=== PATIENT | female | born 1925 | race Caucasian/White ===

== ENCOUNTER 2016-06-16 21:17 | Emergency (ER) | payer MEDICARE, BC ==
[2016-06-16 21:40] VITALS: BP 143/74
--- NOTE | 2016-06-16 21:59 | EDM.PDOC ---
ED HPI GENERAL MEDICAL PROBLEM - General Chief Complaint: General Stated Complaint: STROKE Time Seen by Provider: 06/16/16 21:30 Source of Information: Reports: Patient, Family History Limitations: Reports: No limitations - History of Present Illness INITIAL COMMENTS - FREE TEXT/NARRATIVE: 89-year-old female who had a episode of numbness on the back of her head and felt too weak to get out of her chair so she insisted she needed to be seen. The nursing staff felt she was baseline. On arrival his speech is clear, her strength is symmetric and her vitals are fine. Onset: unknown/unsure Severity: mild Denies Pain Score (Numeric/FACES): 0 - Related Data Allergies Allergy/AdvReac Type Severity Reaction Status Date / Time Sulfa (Sulfonamide Allergy Hives Verified 06/16/16 21:26 Antibiotics) Home Meds: Home Meds Metoprolol Tartrate [Lopressor] 25 mg PO BID 12/13/13 [History] atorvaSTATin [Lipitor] 10 mg PO BEDTIME 12/13/13 [History] Vitamin E 400 intnl unit PO BID 09/21/14 [History] Insulin Glarg,Human.Rec.Analog [Lantus] 10 units SUBCUT BEDTIME 12/25/14 [ History] Ascorbic Acid [Vitamin C] 500 mg PO BID tablet 12/24/15 [Rx] Insulin Aspart [NovoLOG] 0 unit SUBCUT ASDIRECTED pen 12/24/15 [Rx] Diltiazem HCl [Diltiazem ER] 180 mg PO DAILY 05/09/16 [History] Mv-Mn/FA/Vit K/Lycop/Lut/Zeaxa [Ocuvite Eye + Multi Tablet] 1 tab PO DAILY 05/09 [History] Aspirin 81 mg PO DAILY #100 tab.chew 05/10/16 [Rx] Celecoxib [CeleBREX] 100 mg PO DAILY 06/16/16 [History] Haloperidol [Haldol] 2 mg PO BID 06/16/16 [History] Past Medical History HEENT History: Reports: Cataract, Hard of hearing, Impaired vision, Other (see below) Other HEENT History: eye infection following cataract surgery Cardiovascular History: Reports: CAD, Heart murmur, High cholesterol, Hypertension Gastrointestinal History: Reports: Bowel obstruction, Diverticulosis, GI bleed Other Gastrointestinal History: mesenteric panniculitis Genitourinary History: Reports: UTI, recurrent 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 Musculoskeletal History: Reports: Fracture Other Musculoskeletal History: toe Other Neuro History: questionable event not able to move arms, difficulty talking this am feels better now than did this am - grasp equal bilateral and strength is eqaual Past note Tonight no deficit. Endocrine/Metabolic History: Reports: Diabetes, type II Hematologic History: Reports: Blood transfusion(s) Dermatologic History: Reports: Other (see below) Other Dermatologic History: lipomas. shingles - Infectious Disease History Infectious Disease History: Reports: Chicken pox - Past Surgical History HEENT Surgical History: Reports: Cataract surgery, Other (see below) Other HEENT Surgeries/Procedures: cataract surgery 11/30/15 Cardiovascular Surgical History: Reports: Coronary artery stent GI Surgical History: Reports: Appendectomy, Other (see below) Other GI Surgeries/Procedures: Intestine surgery. Female Surgical History: Reports: Tubal ligation Social & Family History - Family History Family Medical History: Noncontributory - Tobacco Use Smoking Status *Q: Never Smoker Second Hand Smoke Exposure: No - Caffeine Use Caffeine Use: Reports: Coffee Other Caffeine Use: 2-3 cups today - Alcohol Use Days Per Week of Alcohol Use: 0 - Recreational Drug Use Recreational Drug Use: No ED ROS GENERAL - Review of Systems Review Of Systems: See Below Constitutional: Reports: malaise. Denies: fever, chills Respiratory: Denies: shortness of breath Cardiovascular: Denies: Chest pain GI/Abdominal: Denies: Abdominal pain, Nausea, Vomiting Skin: Reports: other (Some numbness on the back of her scalp earlier this evening. 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 She will return to her assisted living facility and continue her current treatment. Departure - Departure Time of Disposition: 22:19 Disposition: DC/Tfer to [facility] Condition: good Clinical Impression: Weakness, Confusion Instructions: Confusion Referrals: Clif Botello MD [Primary Care Provider] - Forms: ED Department Discharge Care Plan Goals: Continue current medications without change. Recheck as needed.
== END 2016-06-16 22:19 ==
LOC: JP.ED 21:17
DX: R53.1 Weakness (principal); R41.0 Disorientation, unspecified; Z88.2 Allergy status to sulfonamides; E11.9 Type 2 diabetes mellitus without complications; E78.00 Pure hypercholesterolemia, unspecified; Z79.899 Other long term (current) drug therapy; Z79.4 Long term (current) use of insulin; Z79.82 Long term (current) use of aspirin; Z95.5 Presence of coronary angioplasty implant and graft
CPT/HCPCS: 99284; 99285

== ENCOUNTER 2016-06-27 19:30 | Observation (INO) | payer MEDICARE, BC ==
--- NOTE | 2016-06-27 20:26 | EDM.PDOC ---
ED HPI GENERAL MEDICAL PROBLEM - General Chief Complaint: General Stated Complaint: ILLNESS Time Seen by Provider: 06/27/16 19:35 Source of Information: Reports: Patient, Family, Old records, RN notes reviewed History Limitations: Reports: No limitations - History of Present Illness INITIAL COMMENTS - FREE TEXT/NARRATIVE: 89-year-old female presents to emergency department today with complaints of slurred speech she has a known history of cerebrovascular accident with subdural hemorrhage she also has had TIAs in the past has a history of atrial fibrillation has been on chronic anticoagulation but elected not continued at as she has had frequent falls. She was admitted to the hospital in April 2016 for TIA-like symptoms at which time MRI, echocardiogram were offered as well as transfer for further evaluation 2 strokes in her which she declined. At this time her family is present and they would like to proceed with more investigative measures. She states approximately 2-1/2 hours ago she had slurred speech facial drooping unclear which side inability to use her left arm EMS services were called, EMS evaluation of sensation stroke scale was negative , transported to the emergency department for further evaluation. Upon arrival speech is back to baseline she is moving all 4 extremities family would like an evaluation Left Hip Pain Score (Numeric/FACES): 7 - Related Data Allergies Allergy/AdvReac Type Severity Reaction Status Date / Time Sulfa (Sulfonamide Allergy Hives Verified 06/27/16 19:36 Antibiotics) Home Meds: Home Meds Metoprolol Tartrate [Lopressor] 25 mg PO BID 12/13/13 [History] atorvaSTATin [Lipitor] 10 mg PO BEDTIME 12/13/13 [History] Vitamin E 400 intnl unit PO BID 09/21/14 [History] Insulin Glarg,Human.Rec.Analog [Lantus] 12 units SUBCUT BEDTIME 12/25/14 [ History] Ascorbic Acid [Vitamin C] 500 mg PO BID tablet 12/24/15 [Rx] Insulin Aspart [NovoLOG] 0 unit SUBCUT ASDIRECTED pen 12/24/15 [Rx] Diltiazem HCl [Diltiazem ER] 180 mg PO DAILY 05/09/16 [History] Mv-Mn/FA/Vit K/Lycop/Lut/Zeaxa [Ocuvite Eye + Multi Tablet] 1 tab PO DAILY 05/09 [History] Aspirin 81 mg PO DAILY #100 tab.chew 05/10/16 [Rx] Celecoxib [CeleBREX] 100 mg PO DAILY 06/16/16 [History] Haloperidol [Haldol] 2 mg PO BID 06/16/16 [History] Past Medical History HEENT History: Reports: Cataract, Hard of hearing, Impaired vision, Other (see below) Other HEENT History: eye infection following cataract surgery Cardiovascular History: Reports: CAD, Heart murmur, High cholesterol, Hypertension, Stents Gastrointestinal History: Reports: Bowel obstruction, Diverticulosis, GI bleed Other Gastrointestinal History: mesenteric panniculitis Genitourinary History: Reports: UTI, recurrent 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 Musculoskeletal History: Reports: Fracture Other Musculoskeletal History: toe Neurological History: Reports: TIA, Other (see below) Other Neuro History: not sure if it was a tia or a cva beginning of june 2016 Endocrine/Metabolic History: Reports: Diabetes, type II Hematologic History: Reports: Blood transfusion(s) Dermatologic History: Reports: Other (see below) Other Dermatologic History: lipomas. shingles - Infectious Disease History Infectious Disease History: Reports: Chicken pox - Past Surgical History HEENT Surgical History: Reports: Cataract surgery, Other (see below) Other HEENT Surgeries/Procedures: cataract surgery 11/30/15 Cardiovascular Surgical History: Reports: Coronary artery stent GI Surgical History: Reports: Appendectomy, Other (see below) Other GI Surgeries/Procedures: Intestine surgery. twisted bowels Female Surgical History: Reports: Tubal ligation Social & Family History - Family History Family Medical History: Noncontributory - Tobacco Use Smoking Status *Q: Never Smoker Second Hand Smoke Exposure: No - Caffeine Use Caffeine Use: Reports: Coffee Other Caffeine Use: 2-3 cups today - Alcohol Use Days Per Week of Alcohol Use: 0 - Recreational Drug Use Recreational Drug Use: No ED ROS GENERAL - Review of Systems Review Of Systems: See Below Constitutional: Reports: weakness HEENT: Reports: No symptoms Respiratory: Reports: Shortness of Breath Cardiovascular: Reports: No symptoms GI/Abdominal: Reports: No symptoms : Reports: no symptoms Musculoskeletal: Reports: no symptoms Skin: Reports: no symptoms Neurological: Reports: Trouble Speaking, Weakness ED EXAM, GENERAL - Physical Exam Exam: See Below Free Text/Narrative:: General: female, not in any distress, alert HEENT: head is atraumatic normocephalic, eyes left eye pupil equal and round sclera clear, 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 Ears tympanic membranes clear and meyer landmarks and light reflex are present bilaterally canals are clear. Nose no septal deviation, nares are clear, no blood present. Mouth mucosa is moist and pink no erythema or exudate noted in soft palate, tongue is midline uvula is midline, dentition is intact. Neck: Supple no thyromegaly no tracheal deviation. Nodes: Cervical nodes subclavicular nodes nontender no palpable lymphadenopathy noted. Lungs: clear to auscultation bilaterally with symmetrical respirations, no adventitious noise appreciated. CV: irregularly irregular rate and rhythm S1 and S2 appreciated no murmurs rubs or gallops noted. Abdomen: Soft, nontender, no palpable masses or organomegaly appreciated, no distention no guarding bowel sounds are present, . Neuro: Cranial nerves II through XII grossly intact excludingdeficiencies of the right eye, power is 5 out 5 in upper and lower extremities, can do finger to nose without difficulty no dysdiadochokinesis no difficulty with rapid alternating movements is too weak to stand to complete neuro exam Skin: Warm and dry, intact Extremities: No lower extremity edema appreciated, Course - Vital Signs Last Recorded V/S: Last Vital Signs Temp 98.8 F 06/27/16 19:41 Pulse 64 06/27/16 22:09 Resp 15 06/27/16 22:09 BP 150/77 H 06/27/16 22:09 Pulse Ox 96 06/27/16 22:09 - Orders/Labs/Meds Orders: Active Orders 24 hr Category Date Time Status EKG Documentation Completion [RC] ASDIRECTED Care 06/27/16 20:15 Active Chest 1V Frontal [CR] Urgent Exams 06/27/16 20:14 Taken Head wo Cont [CT] Urgent Exams 06/27/16 20:14 Taken EKG 12 Lead [EK] Urgent Ther 06/27/16 20:14 Ordered Labs: Laboratory Tests 06/27/16 06/27/16 06/27/16 Range/Units 20:27 20:27 20:27 WBC 8.6 (4.5-11.0) K/uL RBC 5.03 (3.30-5.50) M/uL Hgb 15.0 (12.0-15.0) g/dL Hct 43.6 (36.0-48.0) % MCV 87 (80-98) fL MCH 30 (27-31) pg MCHC 34 (32-36) % Plt Count 294 (150-400) K/uL Neut % (Auto) 58 (36-66) % Lymph % (Auto) 27 (24-44) % [place] % (Auto) 12 H (2-6) % Eos % (Auto) 3 (2-4) % Baso % (Auto) 1 (0-1) % PT (9.5-12.0) sec INR (0.80-1.20) APTT (27.0-36.0) sec Sodium 138 L (140-148) mmol/L Potassium 4.4 (3.6-5.2) mmol/L Chloride 101 (100-108) mmol/L Carbon Dioxide 30 (21-32) mmol/L Anion Gap 11.4 (5.0-14.0) mmol/L BUN 14 (7-18) mg/dL Creatinine 0.8 (0.6-1.0) mg/dL Est Cr Clr Drug Dosing TNP Estimated GFR (MDRD) > 60 (>60) Glucose 152 H (74-106) mg/dL Calcium 8.5 (8.5-10.1) mg/dL Total Bilirubin 0.4 (0.2-1.0) mg/dL AST 19 (15-37) U/L ALT 21 (12-78) U/L Alkaline Phosphatase 52 (46-116) U/L CK-MB (CK-2) 1.3 (0-3.6) mg/mL Troponin I < 0.017 (0.000-0.056) ng/mL Total Protein 6.8 (6.4-8.2) g/dL Albumin 3.6 (3.4-5.0) g/dL Globulin 3.2 (2.3-3.5) g/dL Albumin/Globulin Ratio 1.1 L (1.2-2.2) Urine Color Urine Appearance Urine pH (4.5-8.0) Ur Specific Tyler (1.008-1.030) Urine Protein (NEGATIVE) mg/dL Urine Glucose (UA) (NEGATIVE) mg/dL Urine Ketones (NEGATIVE) mg/dL Urine Occult Blood (NEGATIVE) Urine Nitrite (NEGATIVE) Urine Bilirubin (NEGATIVE) Urine Urobilinogen (NORMAL) mg/dL Ur Leukocyte Esterase (NEGATIVE) Urine RBC (0-5) Urine WBC (0-5) Ur Epithelial Cells Amorphous Sediment Urine Bacteria Urine Mucus 06/27/16 06/27/16 Range/Units 20:27 20:28 WBC (4.5-11.0) K/uL RBC (3.30-5.50) M/uL Hgb (12.0-15.0) g/dL Hct (36.0-48.0) % MCV (80-98) fL MCH (27-31) pg MCHC (32-36) % Plt Count (150-400) K/uL Neut % (Auto) (36-66) % Lymph % (Auto) (24-44) % [place] % (Auto) (2-6) % Eos % (Auto) (2-4) % Baso % (Auto) (0-1) % PT 10.7 (9.5-12.0) sec INR 1.01 (0.80-1.20) APTT 25.6 L (27.0-36.0) sec Sodium (140-148) mmol/L Potassium (3.6-5.2) mmol/L Chloride (100-108) mmol/L Carbon Dioxide (21-32) mmol/L Anion Gap (5.0-14.0) mmol/L BUN (7-18) mg/dL Creatinine (0.6-1.0) mg/dL Est Cr Clr Drug Dosing Estimated GFR (MDRD) (>60) Glucose (74-106) mg/dL Calcium (8.5-10.1) mg/dL Total Bilirubin (0.2-1.0) mg/dL AST (15-37) U/L ALT (12-78) U/L Alkaline Phosphatase (46-116) U/L CK-MB (CK-2) (0-3.6) mg/mL Troponin I (0.000-0.056) ng/mL Total Protein (6.4-8.2) g/dL Albumin (3.4-5.0) g/dL Globulin (2.3-3.5) g/dL Albumin/Globulin Ratio (1.2-2.2) Urine Color Yellow Urine Appearance Clear Urine pH 6.5 (4.5-8.0) Ur Specific Tyler 1.015 (1.008-1.030) Urine Protein Negative (NEGATIVE) mg/dL Urine Glucose (UA) 1000 H (NEGATIVE) mg/dL Urine Ketones Negative (NEGATIVE) mg/dL Urine Occult Blood Negative (NEGATIVE) Urine Nitrite Negative (NEGATIVE) Urine Bilirubin Negative (NEGATIVE) Urine Urobilinogen Normal (NORMAL) mg/dL Ur Leukocyte Esterase Negative (NEGATIVE) Urine RBC 0-5 (0-5) Urine WBC 0-5 (0-5) Ur Epithelial Cells Few Amorphous Sediment Few Urine Bacteria Moderate Urine Mucus Not seen Departure - Departure Time of Disposition: 22:58 Disposition: Admitted As Inpatient 68 Condition: poor Clinical Impression: Subdural hematoma, acute Forms: ED Department Discharge - My Orders Last 24 Hours: My Active Orders 06/27/16 20:14 Chest 1V Frontal [CR] Urgent Head wo Cont [CT] Urgent EKG 12 Lead [EK] Urgent 06/27/16 20:15 EKG Documentation Completion [RC] ASDIRECTED - Assessment/Plan Last 24 Hours: My Active Orders 06/27/16 20:14 Chest 1V Frontal [CR] Urgent Head wo Cont [CT] Urgent EKG 12 Lead [EK] Urgent 06/27/16 20:15 EKG Documentation Completion [RC] ASDIRECTED Plan: Assessment Acuity = acute Site and laterality = acute on chronic subdural hematoma 1.2 cm maximum diameter no midline shift the left side Etiology = unclear etiology Manifestations = none Location of injury = home Lab values = CBC unremarkable sodium low at 138 consistent hyponatremia and the remainder of electrolytes within normal limits EKG demonstrates sinus rhythm, CT scan describes a lesion above Plan I did discuss options with her including referral to neurosurgery for further evaluation she declined she states she is a DNR/DNI I wants no further intervention done is willing to do comfort care, family is presents and agree no further interventions similar to her hospitalization last April. Patient was in agreement with the plan all questions were answered, they were instructed to return to the emergency department or call for worsening symptoms. This note was dictated using [employer] voice recognition software please call with any questions.
--- NOTE | 2016-06-27 23:41 | PCM.HP ---
H&P History of Present Illness - General Date of Service: 06/27/16 Admit Problem/Dx: Admission Diagnosis/Problem Admission Diagnosis/Problem Non-traumatic subdural hematoma Source of Information: Patient, EMS notes reviewed, Provider History Limitations: Reports: No limitations - History of Present Illness Initial Comments - Free Text/Narative: Time Seen by Provider: 06/27/16 19:35 Source of Information: Reports: Patient, Family, Old records, RN notes reviewed History Limitations: Reports: No limitations - History of Present Illness INITIAL COMMENTS - FREE TEXT/NARRATIVE: 89-year-old female presents to emergency department today with complaints of slurred speech she has a known history of cerebrovascular accident with subdural hemorrhage she also has had TIAs in the past has a history of atrial fibrillation has been on chronic anticoagulation but elected not continued at as she has had frequent falls. She was admitted to the hospital in April 2016 for TIA-like symptoms at which time MRI, echocardiogram were offered as well as transfer for further evaluation 2 strokes in her which she declined. At this time her family is present and they would like to proceed with more investigative measures. She states approximately 2-1/2 hours ago she had slurred speech facial drooping unclear which side inability to use her left arm EMS services were called, EMS evaluation of sensation stroke scale was negative , transported to the emergency department for further evaluation. Upon arrival speech is back to baseline she is moving all 4 extremities family would like an evaluation Left Hip Pain Score (Numeric/FACES): 7 I did discuss options with her including referral to neurosurgery for further evaluation she declined she states she is a DNR/DNI I wants no further intervention done is willing to do comfort care, family is presents and agree no further interventions similar to her hospitalization last April. Onset of Symptoms: Reports: today Duration of Symptoms: Reports: Hour(s): Location: Reports: generalized Severity: mild Improves with: Reports: None Worsens with: Reports: None Associated Symptoms: Reports: denies other symptoms Left Hip Pain Score (Numeric/FACES): 7 - Related Data Allergies/Adverse Reactions: Allergies Allergy/AdvReac Type Severity Reaction Status Date / Time Sulfa (Sulfonamide Allergy Hives Verified 06/27/16 19:36 Antibiotics) Home Medications: Home Meds Metoprolol Tartrate [Lopressor] 25 mg PO BID 12/13/13 [History] atorvaSTATin [Lipitor] 10 mg PO BEDTIME 12/13/13 [History] Vitamin E 400 intnl unit PO BID 09/21/14 [History] Insulin Glarg,Human.Rec.Analog [Lantus] 12 units SUBCUT BEDTIME 12/25/14 [ History] Ascorbic Acid [Vitamin C] 500 mg PO BID tablet 12/24/15 [Rx] Insulin Aspart [NovoLOG] 0 unit SUBCUT ASDIRECTED pen 12/24/15 [Rx] Diltiazem HCl [Diltiazem ER] 180 mg PO DAILY 05/09/16 [History] Mv-Mn/FA/Vit K/Lycop/Lut/Zeaxa [Ocuvite Eye + Multi Tablet] 1 tab PO DAILY 05/09 [History] Aspirin 81 mg PO DAILY #100 tab.chew 05/10/16 [Rx] Celecoxib [CeleBREX] 100 mg PO DAILY 06/16/16 [History] Haloperidol [Haldol] 2 mg PO BID 06/16/16 [History] Past Medical History HEENT History: Reports: Cataract, Hard of hearing, Impaired vision, Other (see below) Other HEENT History: eye infection following cataract surgery Cardiovascular History: Reports: CAD, Heart murmur, High cholesterol, Hypertension, Stents Gastrointestinal History: Reports: Bowel obstruction, Diverticulosis, GI bleed Other Gastrointestinal History: mesenteric panniculitis Genitourinary History: Reports: UTI, recurrent [employer] History: Reports: , Other (see below) Other OB/BYN History: tubal . Musculoskeletal History: Reports: Fracture Other Musculoskeletal History: toe Neurological History: Reports: TIA, Other (see below) Other Neuro History: not sure if it was a tia or a cva beginning of june 2016 Endocrine/Metabolic History: Reports: Diabetes, type II Hematologic History: Reports: Blood transfusion(s) Dermatologic History: Reports: Other (see below) Other Dermatologic History: lipomas. shingles - Infectious Disease History Infectious Disease History: Reports: Chicken pox - Past Surgical History HEENT Surgical History: Reports: Cataract surgery, Other (see below) Other HEENT Surgeries/Procedures: cataract surgery 11/30/15 Cardiovascular Surgical History: Reports: Coronary artery stent GI Surgical History: Reports: Appendectomy, Other (see below) Other GI Surgeries/Procedures: Intestine surgery. twisted bowels Female Surgical History: Reports: Tubal ligation Social & Family History - Family History Family Medical History: Noncontributory - Tobacco Use Smoking Status *Q: Never Smoker Second Hand Smoke Exposure: No - Caffeine Use Caffeine Use: Reports: Coffee Other Caffeine Use: 2-3 cups today - Alcohol Use Days Per Week of Alcohol Use: 0 - Recreational Drug Use Recreational Drug Use: No - Living Situation & Occupation Living situation: Reports: ( [place] of stroke 2004, 59 years.), extended care facility H&P Review of Systems - Review of Systems: Review Of Systems: See Below General: Reports: no symptoms HEENT: Reports: no symptoms Pulmonary: Reports: No Symptoms Cardiovascular: Reports: no symptoms Gastrointestinal: Reports: No symptoms Genitourinary: Reports: no symptoms Musculoskeletal: Reports: no symptoms Skin: Reports: no symptoms Psychiatric: Reports: no symptoms Neurological: Reports: Pre-Existing Deficit Hematologic/Lymphatic: Reports: no symptoms Immunologic: Reports: no symptoms Exam - Exam Exam: See Below - Vital Signs Vital Signs: Last Vital Signs Temp 37.1 C 06/27/16 19:41 Pulse 64 06/27/16 22:09 Resp 15 06/27/16 22:09 BP 150/77 H 06/27/16 22:09 Pulse Ox 96 06/27/16 22:09 Weight: 61.235 kg - Exam General: alert, oriented, cooperative HEENT: PERRLA (right eye blind), Conjunctiva clear, EOMI, Mucosa moist & pink, Nares patent, Normal nasal septum, Posterior pharynx clear, Pupils equal, Pupils reactive, TMs clear Neck: supple, trachea midline Lungs: Clear to auscultation, Normal respiratory effort Cardiovascular: irregular rhythm (murmur noted) Abdomen: normal bowel sounds, soft (Female) Exam: Deferred Rectal (Female) Exam: Deferred Back Exam: normal inspection Extremities: normal inspection Peripheral Pulses: 2+: radial (L), radial (R), dorsalis pedis (L), dorsalis pedis (R) Skin: warm, dry, intact Neurological: reflexes equal bilateral, strength equal bilateral, normal speech , normal tone, sensation intact Neuro Extensive - Mental Status: alert, normal mood/affect, normal cognition, memory intact Neuro Extensive - Motor, Sensory, Reflexes: normal reflexes Psychiatric: alert, normal affect, normal mood - Patient Data Lab Results last 24 hrs: Laboratory Results - last 24 hr 06/27/16 06/27/16 06/27/16 Range/Units 20:27 20:27 20:27 WBC 8.6 (4.5-11.0) K/uL RBC 5.03 (3.30-5.50) M/uL Hgb 15.0 (12.0-15.0) g/dL Hct 43.6 (36.0-48.0) % MCV 87 (80-98) fL MCH 30 (27-31) pg MCHC 34 (32-36) % Plt Count 294 (150-400) K/uL Neut % (Auto) 58 (36-66) % Lymph % (Auto) 27 (24-44) % [place] % (Auto) 12 H (2-6) % Eos % (Auto) 3 (2-4) % Baso % (Auto) 1 (0-1) % PT (9.5-12.0) sec INR (0.80-1.20) APTT (27.0-36.0) sec Sodium 138 L (140-148) mmol/L Potassium 4.4 (3.6-5.2) mmol/L Chloride 101 (100-108) mmol/L Carbon Dioxide 30 (21-32) mmol/L Anion Gap 11.4 (5.0-14.0) mmol/L BUN 14 (7-18) mg/dL Creatinine 0.8 (0.6-1.0) mg/dL Est Cr Clr Drug Dosing TNP Estimated GFR (MDRD) > 60 (>60) Glucose 152 H (74-106) mg/dL Calcium 8.5 (8.5-10.1) mg/dL Total Bilirubin 0.4 (0.2-1.0) mg/dL AST 19 (15-37) U/L ALT 21 (12-78) U/L Alkaline Phosphatase 52 (46-116) U/L CK-MB (CK-2) 1.3 (0-3.6) mg/mL Troponin I < 0.017 (0.000-0.056) ng/mL Total Protein 6.8 (6.4-8.2) g/dL Albumin 3.6 (3.4-5.0) g/dL Globulin 3.2 (2.3-3.5) g/dL Albumin/Globulin Ratio 1.1 L (1.2-2.2) Urine Color Urine Appearance Urine pH (4.5-8.0) Ur Specific [place] (1.008-1.030) Urine Protein (NEGATIVE) mg/dL Urine Glucose (UA) (NEGATIVE) mg/dL Urine Ketones (NEGATIVE) mg/dL Urine Occult Blood (NEGATIVE) Urine Nitrite (NEGATIVE) Urine Bilirubin (NEGATIVE) Urine Urobilinogen (NORMAL) mg/dL Ur Leukocyte Esterase (NEGATIVE) Urine RBC (0-5) Urine WBC (0-5) Ur Epithelial Cells Amorphous Sediment Urine Bacteria Urine Mucus 06/27/16 06/27/16 Range/Units 20:27 20:28 WBC (4.5-11.0) K/uL RBC (3.30-5.50) M/uL Hgb (12.0-15.0) g/dL Hct (36.0-48.0) % MCV (80-98) fL MCH (27-31) pg MCHC (32-36) % Plt Count (150-400) K/uL Neut % (Auto) (36-66) % Lymph % (Auto) (24-44) % Aiken % (Auto) (2-6) % Eos % (Auto) (2-4) % Baso % (Auto) (0-1) % PT 10.7 (9.5-12.0) sec INR 1.01 (0.80-1.20) APTT 25.6 L (27.0-36.0) sec Sodium (140-148) mmol/L Potassium (3.6-5.2) mmol/L Chloride (100-108) mmol/L Carbon Dioxide (21-32) mmol/L Anion Gap (5.0-14.0) mmol/L BUN (7-18) mg/dL Creatinine (0.6-1.0) mg/dL Est Cr Clr Drug Dosing Estimated GFR (MDRD) (>60) Glucose (74-106) mg/dL Calcium (8.5-10.1) mg/dL Total Bilirubin (0.2-1.0) mg/dL AST (15-37) U/L ALT (12-78) U/L Alkaline Phosphatase (46-116) U/L CK-MB (CK-2) (0-3.6) mg/mL Troponin I (0.000-0.056) ng/mL Total Protein (6.4-8.2) g/dL Albumin (3.4-5.0) g/dL Globulin (2.3-3.5) g/dL Albumin/Globulin Ratio (1.2-2.2) Urine Color Yellow Urine Appearance Clear Urine pH 6.5 (4.5-8.0) Ur Specific [place] 1.015 (1.008-1.030) Urine Protein Negative (NEGATIVE) mg/dL Urine Glucose (UA) 1000 H (NEGATIVE) mg/dL Urine Ketones Negative (NEGATIVE) mg/dL Urine Occult Blood Negative (NEGATIVE) Urine Nitrite Negative (NEGATIVE) Urine Bilirubin Negative (NEGATIVE) Urine Urobilinogen Normal (NORMAL) mg/dL Ur Leukocyte Esterase Negative (NEGATIVE) Urine RBC 0-5 (0-5) Urine WBC 0-5 (0-5) Ur Epithelial Cells Few Amorphous Sediment Few Urine Bacteria Moderate Urine Mucus Not seen Result Diagrams: 06/27/16 20:27 06/27/16 20:27 *Q Meaningful Use (ADM) - VTE *Q VTE Criteria *Q: - Stroke *Q Stroke Criteria *Q: - AMI *Q AMI Criteria *Q: - Problem List (1) Chronic subdural hematoma SNOMED Code(s): 44254236 ICD Code: I62.03 - NONTRAUMATIC CHRONIC SUBDURAL HEMORRHAGE Status: Acute Priority: Medium Current Visit: Yes (2) Subdural hematoma, acute SNOMED Code(s): 62529926 ICD Code: I62.01 - NONTRAUMATIC ACUTE SUBDURAL HEMORRHAGE Status: Acute Priority: High Current Visit: Yes (3) Diabetes mellitus type 2 SNOMED Code(s): 20039885 ICD Code: E11.9 - TYPE 2 DIABETES MELLITUS WITHOUT COMPLICATIONS Status: Chronic Priority: High Current Visit: No (4) Atrial fibrillation SNOMED Code(s): 38537967 ICD Code: I48.91 - UNSPECIFIED ATRIAL FIBRILLATION Status: Acute Priority : Low Current Visit: No Qualifiers: Atrial fibrillation type: chronic Qualified Code(s): I48.2 - Chronic atrial fibrillation Problem List Initiated/Reviewed/Updated: Yes Orders Last 24hrs: Active Orders 24 hr Category Date Time Status Patient Status Manage Transfer [TRANSFER] Routine ADT 06/27/16 23:06 Active EKG Documentation Completion [RC] ASDIRECTED Care 06/27/16 20:15 Active Chest 1V Frontal [CR] Urgent Exams 06/27/16 20:14 Taken Head wo Cont [CT] Urgent Exams 06/27/16 20:14 Taken Resuscitation Status Routine Resus Stat 06/27/16 23:10 Ordered EKG 12 Lead [EK] Urgent Ther 06/27/16 20:14 Ordered Assessment/Plan Comment:: ASSESSMENT / PLAN - 89-year-old female presents to emergency department today with complaints of slurred speech she has a known history of cerebrovascular accident with subdural hemorrhage she also has had TIAs in the past has a history of atrial fibrillation has been on chronic anticoagulation but elected not continued at as she has had frequent falls. She was admitted to the hospital in April 2016 for TIA-like symptoms at which time MRI, echocardiogram were offered as well as transfer for further evaluation 2 strokes in her which she declined. At this time her family is present and they would like to proceed with more investigative measures. She states approximately 2-1/2 hours ago she had slurred speech facial drooping unclear which side inability to use her left arm EMS services were called, EMS evaluation of sensation stroke scale was negative , transported to the emergency department for further evaluation. Upon arrival speech is back to baseline she is moving all 4 extremities family would like an evaluation Left Hip Pain Score (Numeric/FACES): 7 I did discuss options with her including referral to neurosurgery for further evaluation she declined she states she is a DNR/DNI I wants no further intervention done is willing to do comfort care, family is presents and agree no further interventions similar to her hospitalization last April. Patient reports ready to go, misses her of 57 years who of stroke in 2004. Plan -Admit to ICU Med over flow for further monitoring, plan to discharge to Assisted Living in am, if no further impairment is noted. -Oxygen per nasal cannula prn -Advise to notify nurses of any chest pain or other symptoms -Neuro check every 4 hours Diabetes type 2 -insulin Levimer 12 units at hs -insulin Novolog low dose sliding scale -blood glucose check before meals and hs Maintenance issues -Orders home meds: -Nutrition: Regular diet -Tolbert catheter not indicated at this time -DVT: contraindicated due to subdural bleed -GI Prophalaxis; Protonix 40mg daily -ambulates with wheelchair CODE STATUS:DNR/DNI Admission status: Admit to Observation -I expect this patient to stay less than 24 hours, not to exceed 96 hours for evaluation and management of this problem. Disposition;Assisted Living; [facility] [place]. Primary care provider: Dr. Botello
[2016-06-28] MEDS ORDERED: Bisacodyl 5 MG Tab PO PRN (00:31)
[2016-06-28] MEDS ORDERED: Insulin Aspart 100 Units/ML 3 ML Pen SUBCUT SCH (00:31)
[2016-06-28] MEDS ORDERED: Docusate Sodium 100 MG Cap PO PRN (00:31)
[2016-06-28] MEDS ORDERED: Acetaminophen 325 MG Tab PO PRN (00:31)
[2016-06-28] MEDS ORDERED: Insulin Detemir 100 Units/ML 3 ML Pen SUBCUT ONE (01:00)
[2016-06-28] MEDS ORDERED: Celecoxib 100 MG Cap PO ONE (01:00)
[2016-06-28] MEDS ORDERED: Diltiazem 180 MG Cap.CD PO ONE (01:00)
[2016-06-28] MEDS ORDERED: Metoprolol Tartrate 25 MG Tab PO ONE (01:00)
[2016-06-28] MEDS: Haloperidol 1 MG Tab PO SCH ×2 (01:17→01:19)
[2016-06-28] MEDS: Metoprolol Tartrate 25 MG Tab PO SCH ×2 (01:17→09:04)
[2016-06-28] MEDS ORDERED: Pantoprazole 40 MG Tab.CR PO SCH (07:30)
[2016-06-28] MEDS ORDERED: Celecoxib 100 MG Cap PO SCH ×2 (09:00→21:00)
[2016-06-28] MEDS ORDERED: Diltiazem 180 MG Cap.CD PO SCH ×2 (09:00→17:00)
[2016-06-28 09:05] VITALS: BP 146/61
--- NOTE | 2016-06-28 09:16 | CR ---
Mild cardiomegaly. No focal consolidation. Pulmonary vasculature within normal limits.
--- NOTE | 2016-06-28 11:28 | PCM.DCSUM1 ---
Discharge Summary - Hospital Course Brief History: 89-year-old female with history of diabetes mellitus, chronic atrial fibrillation not on anticoagulation and recent TIAs who presented with right arm weakness and slurred speech. She was admitted for observation with possible TIA versus subdural hematoma progression. - Discharge Data Discharge Date: 06/28/16 Discharge Disposition: DC/Tfer to Hospice - Home 50 Condition: Stable - Discharge Diagnosis/Problem(s) (1) TIA (transient ischemic attack) SNOMED Code(s): 166236264, 670308292 ICD Code: G45.9 - TRANSIENT CEREBRAL ISCHEMIC ATTACK, UNSPECIFIED Status: Acute Qualifiers: Transient cerebral ischemia type: unspecified Qualified Code(s): G45.9 - Transient cerebral ischemic attack, unspecified (2) Chronic subdural hematoma SNOMED Code(s): 01433506 ICD Code: I62.03 - NONTRAUMATIC CHRONIC SUBDURAL HEMORRHAGE Status: Acute Priority: Medium (3) Atrial fibrillation SNOMED Code(s): 08048762 ICD Code: I48.91 - UNSPECIFIED ATRIAL FIBRILLATION Status: Chronic Priority: Low Qualifiers: Atrial fibrillation type: chronic Qualified Code(s): I48.2 - Chronic atrial fibrillation (4) Diabetes mellitus type 2 SNOMED Code(s): 02064647 ICD Code: E11.9 - TYPE 2 DIABETES MELLITUS WITHOUT COMPLICATIONS Status: Chronic Priority: High - Patient Summary/Data Hospital Course: Nikkie presented to the emergency room with slurred speech and right hand weakness. Workup in the emergency room did not show evidence for acute stroke but did show a small increase in the size of her chronic subdural hematoma from 0.9 to 1.2 cm. She was admitted to the hospital for observation and potentially additional workup. She declined to transfer to a higher level of care for neurosurgical evaluation at the time of presentation. The morning after admission she is back to her usual self. There were no acute events overnight. I did discuss potential treatment options including medication management versus transfer for intervention versus continuing the current level of treatment versus hospice. At this point she is on fairly good medications. Blood thinning medications will be difficult to titrate given her current subdural hematoma which has progressed slightly in size even on a low-dose aspirin. She has chronic atrial fibrillation and is not on long-term anticoagulation because of the hematoma and fall risk. She very well may be having small embolic phenomenon causing her TIA symptoms. With 3 episodes requiring emergency room evaluation in the past 2 months I am concerned that a larger events is brewing. Patient is aware that a potentially debilitating or life-threatening stroke or could be coming but does not want aggressive intervention or workup at this time. I discussed the situation with 2 sons, one daughter and a granddaughter this morning. Everyone seemed to be on board with more of a comfort-based approach. We did discuss hospice and they were interested in a hospice informational visit and possibly enrollment in hospice. At this time the plan is for discharge back to her assisted living home. The family will be discussing hospice but I think they will end up and rolling her in hospice care. Her terminal diagnosis would be a cerebrovascular disease with recurrent TIAs and likely an embolic stroke in the near future. Chronic atrial fibrillation will be contributing. No medication changes were made during hospital stay. - Patient Instructions Diet: Diabetic Diet Activity: As Tolerated Showering/Bathing: May Shower Notify Provider of: Fever, Increased Pain, Nausea and/or Vomiting Other/Special Instructions: 1. You were in the hospital for observation after an episode of slurred speech and weakness that I suspect was a transient ischemic attack. we did discuss potential interventions including transfer and neurosurgical evaluation. I am concerned that with recurrent symptoms over the past few months that a larger stroke is likely looming. Medications such as blood thinners will be difficult to manage with the subdural hematoma which has increased in size. I would recommend a hospice referral to help maximize comfort and avoid painful invasive procedures. Hospice will be visiting with you prior to hospital discharge. 2. Please continue your usual medications as previously prescribed - Discharge Plan Home Medications: Home Meds Metoprolol Tartrate [Lopressor] 25 mg PO BID 12/13/13 [History] atorvaSTATin [Lipitor] 10 mg PO BEDTIME 12/13/13 [History] Vitamin E 400 intnl unit PO BID 09/21/14 [History] Insulin Glarg,Human.Rec.Analog [Lantus] 12 units SUBCUT BEDTIME 12/25/14 [ History] Ascorbic Acid [Vitamin C] 500 mg PO BID tablet 12/24/15 [Rx] Insulin Aspart [NovoLOG] 0 unit SUBCUT ASDIRECTED pen 12/24/15 [Rx] Diltiazem HCl [Diltiazem ER] 180 mg PO DAILY 05/09/16 [History] Mv-Mn/FA/Vit K/Lycop/Lut/Zeaxa [Ocuvite Eye + Multi Tablet] 1 tab PO DAILY 05/09 [History] Aspirin 81 mg PO DAILY #100 tab.chew 05/10/16 [Rx] Celecoxib [CeleBREX] 100 mg PO DAILY 06/16/16 [History] Haloperidol [Haldol] 2 mg PO BID 06/16/16 [History] Patient Handouts: Transient Ischemic Attack Referrals: Clif Botello MD [Primary Care Provider] - (as needed) - Discharge Summary/Plan Comment DC Time >30 min.: Yes (40 - hospice referral ) - Patient Data Vitals - Most Recent: Last Vital Signs Temp 36.6 C 06/28/16 07:21 Pulse 66 06/28/16 09:04 Resp 16 06/28/16 07:21 BP 146/61 H 06/28/16 09:04 Pulse Ox 98 06/28/16 07:21 Weight - Most Recent: 65.181 kg I&O - Last 24 hours: Intake & Output 06/27/16 06/28/16 06/28/16 22:59 06:59 14:59 Intake Total 240 Output Total 800 Balance -560 Med Orders - Current: Current Medications Acetaminophen (Tylenol) 650 mg PO Q4H PRN PRN Reason: Pain (Mild 1-3)/fever Bisacodyl (Dulcolax) 5 mg PO DAILY PRN PRN Reason: Constipation Celecoxib (Celebrex) 100 mg PO BEDTIME [facility] Diltiazem HCl (Cardizem Cd) 180 mg PO Q24H ARIK Docusate Sodium (Colace) 100 mg PO BID PRN PRN Reason: Constipation Haloperidol (Haldol) 2 mg PO BID@1200,2100 [facility] Insulin Aspart (Novolog) 0 unit SUBCUT ASDIRECTED ARIK PRN Reason: Protocol Insulin Detemir (Levemir) 12 unit SUBCUT BEDTIME [facility] Metoprolol Tartrate (Lopressor) 25 mg PO BID [facility] Last Admin: 06/28/16 09:04 Dose: 25 mg Pantoprazole Sodium (Protonix) 40 mg PO ACBREAKFAST [facility] Last Admin: 06/28/16 09:04 Dose: Not Given Discontinued Medications Celecoxib (Celebrex) 100 mg PO ONETIME ONE Stop: 06/28/16 01:01 Last Admin: 06/28/16 01:24 Dose: 100 mg Diltiazem HCl (Cardizem Cd) 180 mg PO ONETIME ONE Stop: 06/28/16 01:01 Last Admin: 06/28/16 01:23 Dose: 180 mg Haloperidol (Haldol) 2 mg PO BID ARIK Last Admin: 06/28/16 01:19 Dose: 2 mg Insulin Detemir (Levemir) 12 unit SUBCUT ONETIME ONE Stop: 06/28/16 01:01 Last Admin: 06/28/16 01:19 Dose: 12 unit Metoprolol Tartrate (Lopressor) 25 mg PO ONETIME ONE Stop: 06/28/16 01:01 Last Admin: 06/28/16 01:24 Dose: 25 mg *Q Meaningful Use (DIS) - VTE *Q VTE Criteria *Q: - Stroke *Q Stroke Criteria *Q: - AMI *Q AMI Criteria *Q:
[2016-06-28] MEDS ORDERED: Haloperidol 1 MG Tab PO SCH (12:00)
[2016-06-28] MEDS ORDERED: Insulin Detemir 100 Units/ML 3 ML Pen SUBCUT SCH (21:00)
== END 2016-06-28 13:00 | disposition hospice, home (50) ==
LOC: JP.ED 19:30 → JP.ICU 23:06
PROVIDERS: ADMIT Internal Medicine; ATTEND Internal Medicine
DX: G45.9 Transient cerebral ischemic attack, unspecified (principal); I62.01 Nontraumatic acute subdural hemorrhage; I62.03 Nontraumatic chronic subdural hemorrhage; I48.91 Unspecified atrial fibrillation; Z91.81 History of falling; Z88.2 Allergy status to sulfonamides; E11.9 Type 2 diabetes mellitus without complications; Z79.4 Long term (current) use of insulin; Z79.82 Long term (current) use of aspirin; Z79.899 Other long term (current) drug therapy; H91.90 Unspecified hearing loss, unspecified ear; I25.10 Atherosclerotic heart disease of native coronary artery without angina pectoris; I10 Essential (primary) hypertension; E78.00 Pure hypercholesterolemia, unspecified; Z95.5 Presence of coronary angioplasty implant and graft; Z86.73 Personal history of transient ischemic attack (TIA), and cerebral infarction without residual deficits
CPT/HCPCS: 36415; 70450; 71010; 80053; 81001; 82553; 82962; 84484; 85025; 85610; 85730; 93005; 99285; A9270; G0378; 93010; 99234